=== PATIENT | female | born 1975 | race Caucasian/White ===

== ENCOUNTER → 2018-08-29 | Outpatient (CLI) | payer OTHER | LOC: FIMAGING 15:12 | PROVIDERS: ATTEND Advanced Practice Midwife | DX: Z12.31 Encounter for screening mammogram for malignant neoplasm of breast (principal); Z80.3 Family history of malignant neoplasm of breast ==

== ENCOUNTER 2018-09-25 12:47 | Emergency (ER) | payer OTHER ==
--- NOTE | 2018-09-25 13:07 | EDPHY ---
HPI/HX/ROS/PE/MDM Narrative: CHIEF COMPLAINT: Chest pain HPI: This is a 43-year-old female who complains of chest pain that began approximately 2 hr ago while she was eating food. Pain initially started off as sharp but then became dull and spread from her substernal region throughout her chest and to her epigastrium. She denies vomiting or shortness of breath. Pain is not pleuritic. She states that pain is worse with standing up and walking and relieved by rest. Reassuringly, she was able to run 5 miles this morning with no discomfort, shortness of breath, or change in exercise tolerance. She has a significant family cardiac history. She took an aspirin prior to arrival. Her has a flight medic and performed an EKG prior to arrival which showed some abnormalities in the inferior leads. The patient also reports an episode of left-sided chest pain with radiation to her left arm that occurred approximately 1 week ago and lasted approximately 30 min. REVIEW OF SYSTEMS: A comprehensive 10 system review of systems is otherwise negative aside from elements mentioned in the history of present illness and medical decision making. PMH: No significant past medical history. Family history positive for multiple relatives with cardiac disease. 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 Denies drug abuse. PHYSICAL EXAM: General:Patient is alert, in no acute distress. ENT:Eyes are normal to inspection. ENT inspection normal. Neck: Normal inspection. Full range of motion. Respiratory:No respiratory distress. Breath sounds normal bilaterally. Cardiovascular: Regular rate and rhythm. Strong peripheral pulses. Normal cap refill. Abdomen:The abdomen is nontender to palpation. There are no peritoneal signs. There are normal bowel sounds. Back: Normal to inspection. No tenderness to palpation. Skin: Normal color. No rash. Warm and dry. Extremities: Normal appearance. Full range of motion. Neuro: Oriented x3. Normal motor function. Normal sensory function. ED Course: 43 y/o female presents with substernal chest pain which began two hours prior to arrival. Plan for EKG, chest x-ray, labs including CBC, chemistries, POC troponin, liver, lipase, d-dimer, BHCG. EKG was ordered and interpreted by myself. Please see [facility] system for official reading. Sinus rhythm. POC troponin 0.02. Chest x-ray is negative for acute processes. Reviewed laboratory studies. These are largely unremarkable. D-dimer negative. BHCG negative. Reassessed patient. Discussed negative cardiac workup so far. Plan to observe here in the emergency department and repeat troponin at 4 hours from initial result. Repeat troponin is 0.01. 16:35 Reassessed patient. Discussed additional results. I offered admission for further evaluation, but the patient declines. She understands she may return at any time for additional observation and further cardiac workup. Plan to discharge home in good condition with referral to cardiology. Follow up and return precaution discussed. She is comfortable with this plan. MDM: This is a healthy female with no cardiac risk factors. She presents with atypical chest pain and a negative troponin. Her presentation is particularly reassuring in that she was able to vigorously run 5 miles this morning with no symptoms whatsoever. Her only abnormal finding is mild ST depression in the inferior leads. Given the anatomic grouping of this finding as well as some epigastric pain, I strongly encouraged her to remain in the ED for further observation and repeat troponin. Her repeat troponin approximately 5 hours after pain onset is still negative and trending downward. Her ECG is improved. I consulted Dr. Burdick from Cardiology who is in agreement that patient can be followed closely as an outpatient. On re-evaluation, patient feels great and chest pain free. I strongly advised her to return to the ED for any recurrence of chest pain and that she follow-up with Cardiology without fail within the next 48 hours. Given negative d-dimer, I think PE is very unlikely. There is no evidence for PNA, PTX, TAD. - Data Points Imaging Results: Imaging Impressions Chest X-Ray 09/25/18 13:12 IMPRESSION: Normal chest x-ray. Imaging: I viewed and interpreted images myself Laboratory Results: Laboratory Results 09/25/18 13:05 09/25/18 13:05 09/25/18 09/25/18 09/25/18 16:06 13:12 13:08 WBC RBC Hgb POC Hgb 15.0 gm/dL gm/dL (12.6-16.3) Hct POC Hct 44 % % (38-47) MCV MCH MCHC RDW Plt Count MPV Neut % (Auto) Lymph % (Auto) Hudspeth % (Auto) Eos % (Auto) Baso % (Auto) Nucleat RBC Rel Count Absolute Neuts (auto) Absolute Lymphs (auto) Absolute Monos (auto) Absolute Eos (auto) Absolute Basos (auto) Absolute Nucleated RBC Immature Gran % Immature Gran # D-Dimer POC Sodium 141 mEq/L mEq/L (135-145) Sodium POC Potassium 3.5 mEq/L mEq/L (3.3-5.0) Potassium POC Chloride 103 mEq/L mEq/L (97-110) Chloride Carbon Dioxide POC Total CO2 27 mEq/L mEq/L (22-31) Anion Gap POC BUN 12 mg/dL mg/dL (7-23) BUN Creatinine POC Creatinine 1.0 mg/dL mg/dL (0.6-1.0) Estimated GFR Glucose POC Glucose 94 mg/dL mg/dL (70-100) Calcium Total Bilirubin Conjugated Bilirubin Unconjugated Bilirubin AST ALT Alkaline Phosphatase POC Troponin I 0.01 ng/mL ng/mL 0.02 ng/mL ng/mL (0.00-0.08) (0.00-0.08) Total Protein Albumin Lipase Beta HCG, Qual 09/25/18 09/25/18 09/25/18 13:05 13:05 13:05 WBC RBC Hgb POC Hgb Hct POC Hct MCV MCH MCHC RDW Plt Count MPV Neut % (Auto) Lymph % (Auto) Hudspeth % (Auto) Eos % (Auto) Baso % (Auto) Nucleat RBC Rel Count Absolute Neuts (auto) Absolute Lymphs (auto) Absolute Monos (auto) Absolute Eos (auto) Absolute Basos (auto) Absolute Nucleated RBC Immature Gran % Immature Gran # D-Dimer < 0.27 ug/mLFEU ug/mLFEU (0.00-0.50) POC Sodium Sodium 138 mEq/L mEq/L (135-145) POC Potassium Potassium 3.9 mEq/L mEq/L (3.5-5.2) POC Chloride Chloride 103 mEq/L mEq/L (97-110) Carbon Dioxide 25 mEq/l mEq/l (22-31) POC Total CO2 Anion Gap 10 mEq/L mEq/L (6-14) POC BUN BUN 13 mg/dL mg/dL (7-23) Creatinine 0.9 mg/dL mg/dL (0.6-1.0) POC Creatinine Estimated GFR > 60 Glucose 93 mg/dL mg/dL (70-100) POC Glucose Calcium 9.2 mg/dL mg/dL (8.5-10.4) Total Bilirubin 0.9 mg/dL mg/dL (0.1-1.4) Conjugated Bilirubin 0.1 mg/dL mg/dL (0.0-0.5) Unconjugated Bilirubin 0.8 mg/dL mg/dL (0.0-1.1) AST 33 IU/L IU/L (14-46) ALT 35 IU/L IU/L (9-52) Alkaline Phosphatase 60 IU/L IU/L (38-126) POC Troponin I Total Protein 7.0 g/dL g/dL (6.3-8.2) Albumin 4.4 g/dL g/dL (3.5-5.0) Lipase 110 IU/L IU/L (23-300) Beta HCG, Qual NEGATIVE 09/25/18 13:05 WBC 7.59 10^3/uL 10^3/uL (3.80-9.50) RBC 4.79 10^6/uL 10^6/uL (4.18-5.33) Hgb 14.2 g/dL g/dL (12.6-16.3) POC Hgb Hct 43.4 % % (38.0-47.0) POC Hct MCV 90.6 fL fL (81.5-99.8) MCH 29.6 pg pg (27.9-34.1) MCHC 32.7 g/dL g/dL (32.4-36.7) RDW 11.9 % % (11.5-15.2) Plt Count 281 10^3/uL 10^3/uL (150-400) MPV 9.5 fL fL (8.7-11.7) Neut % (Auto) 70.5 % % (39.3-74.2) Lymph % (Auto) 23.6 % % (15.0-45.0) Hudspeth % (Auto) 4.9 % % (4.5-13.0) Eos % (Auto) 0.5 % L % (0.6-7.6) Baso % (Auto) 0.4 % % (0.3-1.7) Nucleat RBC Rel Count 0.0 % % (0.0-0.2) Absolute Neuts (auto) 5.35 10^3/uL 10^3/uL (1.70-6.50) Absolute Lymphs (auto) 1.79 10^3/uL 10^3/uL (1.00-3.00) Absolute Monos (auto) 0.37 10^3/uL 10^3/uL (0.30-0.80) Absolute Eos (auto) 0.04 10^3/uL 10^3/uL (0.03-0.40) Absolute Basos (auto) 0.03 10^3/uL 10^3/uL (0.02-0.10) Absolute Nucleated RBC 0.00 10^3/uL 10^3/uL (0-0.01) Immature Gran % 0.1 % % (0.0-1.1) Immature Gran # 0.01 10^3/uL 10^3/uL (0.00-0.10) D-Dimer POC Sodium Sodium POC Potassium Potassium POC Chloride Chloride Carbon Dioxide POC Total CO2 Anion Gap POC BUN BUN Creatinine POC Creatinine Estimated GFR Glucose POC Glucose Calcium Total Bilirubin Conjugated Bilirubin Unconjugated Bilirubin AST ALT Alkaline Phosphatase POC Troponin I Total Protein Albumin Lipase Beta HCG, Qual Medications Given: Discontinued Medications Sodium Chloride (Ns) 1,000 mls @ 0 mls/hr IV EDNOW ONE; Wide Open PRN Reason: Protocol Stop: 09/25/18 13:13 Last Admin: 09/25/18 13:28 Dose: 1,000 mls Point of Care Test Results: Chemistry 09/25/18 09/25/18 09/25/18 16:06 13:12 13:08 POC Sodium 141 mEq/L mEq/L (135-145) POC Potassium 3.5 mEq/L mEq/L (3.3-5.0) POC Chloride 103 mEq/L mEq/L (97-110) POC Total CO2 27 mEq/L mEq/L (22-31) POC BUN 12 mg/dL mg/dL (7-23) POC Creatinine 1.0 mg/dL mg/dL (0.6-1.0) POC Glucose 94 mg/dL mg/dL (70-100) POC Troponin I 0.01 ng/mL ng/mL 0.02 ng/mL ng/mL (0.00-0.08) (0.00-0.08) ISTAT H&H 09/25/18 13:12 POC Hgb 15.0 gm/dL gm/dL (12.6-16.3) POC Hct 44 % % (38-47) General Time Seen by Provider: 09/25/18 12:57 Initial Vital Signs: Initial Vital Signs Temperature (C) 36.9 C 09/25/18 12:50 Heart Rate 70 09/25/18 12:50 Respiratory Rate 16 09/25/18 12:50 Blood Pressure 125/85 H 09/25/18 12:50 O2 Sat (%) 99 09/25/18 12:50 O2 Delivery Mode Room Air Allergies/Adverse Reactions: No Known Allergies Allergy (Verified 09/25/18 12:50) Home Medications: Medication Instructions Recorded 10/25/14 Vitamin D3 (OTC) 10/25/14 Departure - Departure Disposition: Home, Routine, Self-Care Clinical Impression: Chest pain Qualifiers: Chest pain type: unspecified Qualified Code(s): R07.9 - Chest pain, unspecified Condition: Good Instructions: Chest Pain (ED) Additional Instructions: Follow-up with your primary doctor within 72 hours. Return to the Emergency Department for fever, chest pain, shortness of breath, increasing pain or other worsening of condition. Follow up with a loadmaster for further testing, as soon as possible, within one week. As we discussed, it is impossible to fully rule out heart disease as the cause of your chest pain in the emergency department. We would be happy to reevaluate you and observe you in the hospital at any time. Referrals: [facility] [Primary Care Provider] - As per Instructions Luciano Burdick MD [Medical Doctor] - As per Instructions Report Scribed for: Neal Gomez Report Scribed by: Chanel Jimenez Date of Report: 09/25/18 Time of Report: 14:15 Physician Review and Approval Statement: Portions of this note were transcribed by an ED scribe. I personally performed the history, physical exam, and medical decision making; and confirm the accuracy of the information in the transcribed note.
[2018-09-25] MEDS ORDERED: NS 1,000 ML IV ONE (13:12)
[2018-09-25 13:18] LABS: PLATELET COUNT 281 10^3/uL (150-400)
[2018-09-25 16:46] VITALS: BP 102/77
--- NOTE | 2018-09-25 18:52 | CPEKG ---
Test Reason : OPEN Blood Pressure : / mmHG Vent. Rate : 068 BPM Atrial Rate : 068 BPM P-R Int : 162 ms QRS Dur : 086 ms QT Int : 377 ms P-R-T Axes : 070 069 -04 degrees QTc Int : 401 ms Sinus rhythm Probable left atrial enlargement Anteroseptal infarct, old Minimal ST depression, inferior leads Confirmed by Neal Gomez ([id number]) on 09/25/2018 6:52:06 PM Referred By: Neal Gomez Confirmed By:Neal Gomez
--- NOTE | 2018-09-25 18:52 | CPEKG ---
Test Reason : OPEN Blood Pressure : / mmHG Vent. Rate : 064 BPM Atrial Rate : 063 BPM P-R Int : 170 ms QRS Dur : 080 ms QT Int : 403 ms P-R-T Axes : 072 073 010 degrees QTc Int : 416 ms Sinus rhythm Probable left atrial enlargement Anteroseptal infarct, age indeterminate Confirmed by Neal Gomez ([id number] on 09/25/2018 6:51:53 PM Referred By: Neal Gomez Confirmed By:Neal Gomez
== END 2018-09-25 17:12 | disposition home or self-care (01) ==
DX: R07.2 Precordial pain (principal); R10.13 Epigastric pain; R94.31 Abnormal electrocardiogram [ECG] [EKG]; Z82.49 Family history of ischemic heart disease and other diseases of the circulatory system
CPT/HCPCS: 82435-PO; 82565-PO; 82947-PO; 84132-PO; 84295-PO; 84484-ER; 84520-PO; 85014-ER